=== PATIENT | female | born 1980 | race Caucasian/White ===

== ENCOUNTER 2023-07-09 01:24 | Emergency (ER) | payer MEDICAID, OTHER ==
[~2023-07-09] VITALS: Ht 170.2 cm; Wt 81.0 kg
[2023-07-09] MEDS: LORazepam 2MG/ML-1ML VIAL IM ONE (03:40)
[2023-07-09 03:45] VITALS: BP 163/79; TEMP 98.4
[2023-07-09 03:47] VITALS: PULSE 63; RESP 18; O2SAT 97
== END 2023-07-09 04:10 | disposition home or self-care (01) ==
LOC: ER 01:24
DX: F41.9 Anxiety disorder, unspecified (principal)
CPT/HCPCS: 96372; 99283; J2060